=== PATIENT | male | born 1970 | race Hispanic/Latino ===

== ENCOUNTER 2018-12-16 16:00 | Outpatient (CLI) | payer OTHER ==
--- NOTE | 2018-12-16 16:40 | XRay Report ---
LEFT SHOULDER 3 VIEWS INDICATION / CLINICAL INFORMATION: Left shoulder pain. Left shoulder injury while playing basketball. COMPARISON: None available. FINDINGS: BONES and JOINT(S): No acute fracture or subluxation. No significant arthritis. SOFT TISSUES: No significant abnormality. ADDITIONAL FINDINGS: None. IMPRESSION: No significant abnormality of the left shoulder. Signer Name: Deandre Brady MD Signed: 12/16/2018 4:36 PM Workstation Name: [id number]
== END 2018-12-16 16:01 | disposition home or self-care (01) ==
LOC: SPVIMAG 16:00
PROVIDERS: ATTEND Internal Medicine
DX: S49.92XA Unspecified injury of left shoulder and upper arm, initial encounter (principal); M25.512 Pain in left shoulder; Y93.67 Activity, basketball; Y92.89 Other specified places as the place of occurrence of the external cause; Y99.8 Other external cause status